=== PATIENT | male | born 1990 | race Caucasian/White ===

== ENCOUNTER 2017-02-25 01:34 | Emergency (ER) | payer SELFPAY ==
[2017-02-25] MEDS ORDERED: ACYCLOVIR 200 MG CAPSULE PO ONE (03:05)
--- NOTE | 2017-02-25 03:10 | ER Document Report ---
ED General - General Chief Complaint: Rectal Bleeding Stated Complaint: RECTAL BLEEDING Time Seen by Provider: 02/25/17 02:56 Notes: Patient is a 26-year-old male who presents with complaint of pain and sores on the rectal area. He is also noticing bleeding. He cannot give me exact timeline of how long they have been there. Patient does have a previous history of hemorrhoids. He is wondering if maybe there hemorrhoids. He does do rectal intercourse occasionally. Discharge from his rectum. No fevers. No discharge from his penis. No other complaints at this time. TRAVEL OUTSIDE OF THE [place] IN LAST 30 DAYS: No - Related Data Allergies/Adverse Reactions: No Known Allergies Allergy (Verified 07/25/12 06:52) Past Medical History - Social History Smoking Status: Never Smoker Frequency of alcohol use: None Drug Abuse: None Family History: Reviewed & Not Pertinent Patient has suicidal ideation: No Patient has homicidal ideation: No - Past Medical History Cardiac Medical History: Reports: Hx Hypertension Neurological Medical History: Reports: Hx Seizures Endocrine Medical History: Reports: Hx Diabetes Mellitus Type 1 - STARTED INSULIN X 2 WKS AGO Renal/ Medical History: Denies: Hx Peritoneal Dialysis Psychiatric Medical History: Reports: Hx Attention Deficit Hyperactivity Disorder, Hx Bipolar Disorder - Immunizations Immunizations up to date: Yes Hx Diphtheria, Pertussis, Tetanus Vaccination: Yes Review of Systems - Review of Systems Notes: My Normal Review Basic REVIEW OF SYSTEMS: CONSTITUTIONAL : Denies fever, chills, or sweats. Denies recent illness. RESPIRATORY: Denies cough, cold, or chest congestion. Denies shortness of breath, difficulty breathing, or wheezing. GASTROINTESTINAL: Denies abdominal pain. Denies nausea, vomiting, or diarrhea. Denies constipation. Has rectal pain GENITOURINARY: Denies difficulty urinating, painful urination, burning, frequency, or blood in urine. MUSCULOSKELETAL: Denies neck or back pain or joint pain or swelling. SKIN: Denies rash or skin lesions. ALL OTHER SYSTEMS REVIEWED AND NEGATIVE. Physical Exam - Vital signs Vitals: Temp Pulse Resp BP Pulse Ox 98.2 F 97 18 163/83 H 100 02/25/17 01:41 02/25/17 01:41 02/25/17 01:41 02/25/17 01:41 02/25/17 01:41 - Notes Notes: General Appearance: Well nourished, alert, cooperative, no acute distress, no obvious discomfort. Well appearing. Vitals: reviewed, See vital signs table. Head: no swelling or tenderness to the head Eyes: PERRL, EOMI, Conjuctiva clear Mouth: Small cold sore on the mucosal side of the lower lip. Abdomen: Normal BS, soft, No rigidity, No abdominal tenderness, No guarding, no rebound, no abdominal masses, no organomegaly Rectum: Patient has several small areas of excoriation consistent with herpes lesions. No active discharge from the rectum. No bleeding. Skin: warm, dry, appropriate color, no rash Neuro: speech clear, oriented x 3, normal affect, responds appropriately to questions. Course - Vital Signs Vital signs: Temp Pulse Resp BP Pulse Ox 98.2 F 97 18 163/83 H 100 02/25/17 01:41 02/25/17 01:41 02/25/17 01:41 02/25/17 01:41 02/25/17 01:41 - Transfer of Care Notes: 02/25/17 03:58 Patient has what appears to be herpetic lesions on the rectum. Patient does have history of rectal intercourse. He has had no discharge from the rectum. I will start him on acyclovir. I did talk to him about other STD testing. He is agreeable to HIV testing. I will give him the culture callback number to get his HIV results. I encouraged him to follow-up with the health department for continued management and treatment of his herpes infections. I have written a prescription for acyclovir. Patient encouraged to return to ER if has fevers, worsening pain, abnormal discharge, or any further concerns. Patient encouraged to inform his sexual partners to be tested. Patient agrees with plan will be discharged home. Dictation of this chart was performed using voice recognition software; therefore, there may be some unintended grammatical errors. Discharge - Discharge Clinical Impression: Herpes Condition: Good Disposition: HOME, SELF-CARE Additional Instructions: Your exam is consistent with a Herpes infection around the rectum. Please take the medication as prescribed. We have also drawn your blood to test it for HIV. The HIV results will not return immediately Please call [phone] to get the results of your HIV testing. The results should be back by Tuesday. If your results are positive you should go immediately to the health department for treatment. Please follow up with the health department or your doctor for further maintenance treatment of your herpetic infection. Please inform your sexual partners of your herpes infection so that they can be tested and treated as well. Return to the ER immediately if you develop any abnormal drainage from the rectum, increasing pain, penile discharge, or fevers. Prescriptions: Acyclovir [Acyclovir 400 mg Tablet] 400 mg PO TID #21 tablet [facility] - 02/28/17
[2017-02-25 04:21] VITALS: BP 149/75
[2017-02-25 05:08] LABS: ADD HIVPANEL? NO; HIV (1 AND 2) ANTIBODY NEGATIVE (NEGATIVE)
== END 2017-02-25 03:50 | disposition home or self-care (01) ==
LOC: ER 01:34
DX: B00.9 Herpesviral infection, unspecified (principal); K62.5 Hemorrhage of anus and rectum
CPT/HCPCS: 36415; 86701; 99283

== ENCOUNTER 2017-08-02 18:42 | Emergency (ER) | payer SELFPAY ==
--- NOTE | 2017-08-02 20:15 | ER Document Report ---
ED General - General Chief Complaint: Skin Problem Stated Complaint: RASH, PAIN Time Seen by Provider: 08/02/17 19:36 Mode of Arrival: Ambulatory Information source: Patient Notes: Patient is a 26-year-old white male comes emergency room complaining of painful lesions in the crack of his buttock. Patient states they have been going on for months he was seen here back in January thought to be a herpes current presentation is put on antivirals without any relief. Patient has not seen anyone since that time but states that the lesions have been getting more spread out they are becoming more painful and it is a situation where to became for 4 became 6 sooner multiplying very rapidly. Patient states it is very painful. Patient also admits to being sexually active/with males. TRAVEL OUTSIDE OF THE [place] IN LAST 30 DAYS: No - HPI Patient complains to provider of: Lesions on buttocks Onset: Other - 6-8 months Onset/Duration: Gradual, Constant, Persistent, Worse Quality of pain: Sharp, Throbbing Severity: Severe Pain Level: 4 Associated symptoms: Other - Pain and itching Exacerbated by: Movement, Walking, Other - Laying on back Relieved by: Denies Similar symptoms previously: Yes Recently seen / treated by doctor: No - Related Data Allergies/Adverse Reactions: No Known Allergies Allergy (Verified 08/02/17 18:47) Past Medical History - General Information source: Patient - Social History Smoking Status: Never Smoker Frequency of alcohol use: None Drug Abuse: None Lives with: Alone Family History: Reviewed & Not Pertinent Patient has suicidal ideation: No Patient has homicidal ideation: No - Past Medical History Cardiac Medical History: Reports: Hx Hypertension Neurological Medical History: Reports: Hx Seizures Endocrine Medical History: Reports: Hx Diabetes Mellitus Type 1 - STARTED INSULIN X 2 WKS AGO Renal/ Medical History: Denies: Hx Peritoneal Dialysis Psychiatric Medical History: Reports: Hx Attention Deficit Hyperactivity Disorder, Hx Bipolar Disorder - Immunizations Immunizations up to date: Yes Hx Diphtheria, Pertussis, Tetanus Vaccination: Yes Review of Systems - Review of Systems Constitutional: No symptoms reported EENT: No symptoms reported Cardiovascular: No symptoms reported Respiratory: See HPI Gastrointestinal: No symptoms reported Genitourinary: No symptoms reported Male Genitourinary: Other - Lesions in the rectal area near the gluteal folds Musculoskeletal: No symptoms reported Skin: Other - Lesions in the gluteal fold area of the buttocks on the way down to the scrotal line Neurological/Psychological: No symptoms reported -: Yes All other systems reviewed and negative Physical Exam - Vital signs Vitals: Temp Pulse Resp BP Pulse Ox 98.6 F 100 20 172/99 H 98 08/02/17 18:49 08/02/17 18:49 08/02/17 18:49 08/02/17 18:49 08/02/17 18:49 - General General appearance: Other - Uncomfortable appearing - Respiratory Respiratory status: No respiratory distress Chest status: Nontender Breath sounds: Normal - Cardiovascular Rhythm: Regular Heart sounds: Normal auscultation Murmur: No - Neurological Neuro grossly intact: Yes Cognition: Normal Orientation: AAOx4 Hayley Coma Scale Eye Opening: Spontaneous [place] Coma Scale Verbal: Oriented [place] Coma Scale Motor: Obeys Commands [place] Coma Scale Total: 15 Speech: Normal - Skin Skin Temperature: Warm Skin Moisture: Moist Skin Color: Erythema, Other - Examination patient's area of complaint shows there to be multiple lesions in multiple stages of development. All of them have her assume a cauliflower type shape mostly flat against the skin although can be raised or attached by a single shaft. Wide kinds of coils to it and also a foul smell. Notes: I had Dr. Hanson coming to the room and examined with me since I had a working diagnosis of condyloma acuminata is examination coming into the room also is in accordance with mine he feels it has also condyloma. We have informed patient that he needs to see a flight controls engineer to have these listed caring clinic may be they have a flight controls engineer that works with them froze off. I am going to give patient that he might be able to see. Course - Re-evaluation Re-evalutation: 08/02/17 20:21 As stated I had the my attending also look at patient in agreement with me on the condyloma acuminatum. Treat patient with a little pain medication since this is so overwhelming and appears to be somewhat raw at the same time. We will also place him on an antibiotic for secondary cellulitis. I have explained to patient this is a highly contagious situation that he needs to refrain from any kind of sexual activity until these are burned off or cut frozen off. Should you have any concerns or problems return to ER for recheck. - Vital Signs Vital signs: Temp Pulse Resp BP Pulse Ox 98.6 F 100 20 172/99 H 98 08/02/17 18:49 08/02/17 18:49 08/02/17 18:49 08/02/17 18:49 08/02/17 18:49 Discharge - Discharge Clinical Impression: Condylomata acuminata in male Condition: Stable Disposition: HOME, SELF-CARE Instructions: Acetaminophen, Cellulitis ([facility]) Additional Instructions: Home and rest. Medication as prescribed. As we informed you this is a condition that is highly contagious and should avoid sexual intercourse at all cost until these are taking care of. I am giving you the name of the clinic that has a sliding scale that she may build to access for medical problems and they may have an answer to a flight controls engineer. I am giving her antibiotics because you have a secondary infection as well to take all the antibiotics until gone. She generally concerns or problems return to ER for recheck. We do not have a and discharged on condyloma acuminata so I am going to run you something off on the Internet you may wish to also do some research on the Internet as well. Prescriptions: Hydrocodone/Acetaminophen [[place] 7.5-325 Tablet] 1 each PO Q4 PRN #15 tablet PRN Reason: Sulfamethoxazole/Trimethoprim [Bactrim Ds Tablet] 1 each PO BID #20 tablet Forms: Elevated Blood Pressure Referrals: [facility] [Provider Group] - Follow up as needed
[2017-08-02 20:46] VITALS: BP 163/86
== END 2017-08-02 20:44 | disposition home or self-care (01) ==
LOC: ER 18:42
DX: A63.0 Anogenital (venereal) warts (principal); R21 Rash and other nonspecific skin eruption
CPT/HCPCS: 99283